=== PATIENT | female | born 1980 | race Caucasian/White ===

== ENCOUNTER 2025-01-25 15:38 | Emergency (ER) | payer MEDICAID, OTHER ==
[~2025-01-25] VITALS: Ht 175.3 cm; Wt 67.6 kg
[2025-01-25 16:06] VITALS: TEMP 97.9
[2025-01-25] MEDS ORDERED: LIDOCAINE 5% (PATCH) 1 EA PATCH TP ONE (17:01)
[2025-01-25] MEDS ORDERED: ACETAMINOPHEN 325 MG TABLET ONE (17:01)
[2025-01-25] MEDS ORDERED: KETOROLAC TROMETHAMINE 15 MG/ML VIAL ONE (17:01)
[2025-01-25] MEDS ORDERED: dexaMETHasone SOD PHOSPHATE 4 MG/ML VIAL ONE (17:01)
[2025-01-25] MEDS: KETOROLAC TROMETHAMINE 15 MG/ML VIAL IM ONE (17:10)
[2025-01-25] MEDS: dexaMETHasone SOD PHOSPHATE 4 MG/ML VIAL IM ONE (17:10)
[2025-01-25] MEDS: ACETAMINOPHEN 325 MG TABLET PO ONE (17:10)
[2025-01-25] MEDS: LIDOCAINE 5% (PATCH) 1 EA PATCH TP SCH (17:10)
[2025-01-25] MEDS ORDERED: GABA-536 PO (17:48)
[2025-01-25] MEDS ORDERED: LIDO30AD10 TP (17:48)
[2025-01-25 18:00] VITALS: BP 130/85; O2SAT 99
== END 2025-01-25 17:59 | disposition home or self-care (01) ==
LOC: ER 16:12
DX: M25.532 Pain in left wrist (principal); M25.531 Pain in right wrist; M25.512 Pain in left shoulder; M25.511 Pain in right shoulder; M25.572 Pain in left ankle and joints of left foot; M25.571 Pain in right ankle and joints of right foot; G89.29 Other chronic pain; M79.7 Fibromyalgia; Z88.0 Allergy status to penicillin; Z88.2 Allergy status to sulfonamides; Z87.39 Personal history of other diseases of the musculoskeletal system and connective tissue
CPT/HCPCS: 99284; 96372; J1885; J1100

== ENCOUNTER 2025-01-27 17:29 | Emergency (ER) | payer OTHER ==
[~2025-01-27] VITALS: Ht 175.3 cm; Wt 67.1 kg
[~2025-01-27 17:29] MED LIST: GABA-536 PO; LIDO30AD10 TP
[2025-01-27 17:46] VITALS: BP 151/101; TEMP 97.9; O2SAT 99
[2025-01-27] MEDS ORDERED: CYCLOBENZAPRINE 10 MG TABLET ONE (18:09)
[2025-01-27] MEDS ORDERED: KETOROLAC TROMETHAMINE 15 MG/ML VIAL ONE (18:09)
[2025-01-27] MEDS ORDERED: CYCL5TAB PO (18:14)
[2025-01-27] MEDS ORDERED: NAPR500T6 PO (18:14)
[2025-01-27] MEDS: CYCLOBENZAPRINE 10 MG TABLET PO ONE (18:16)
[2025-01-27] MEDS: KETOROLAC TROMETHAMINE 15 MG/ML VIAL IM ONE (18:18)
== END 2025-01-27 19:32 | disposition home or self-care (01) ==
LOC: ER 17:32
DX: M25.612 Stiffness of left shoulder, not elsewhere classified (principal); M25.611 Stiffness of right shoulder, not elsewhere classified; M25.652 Stiffness of left hip, not elsewhere classified; M25.651 Stiffness of right hip, not elsewhere classified; M25.632 Stiffness of left wrist, not elsewhere classified; M25.631 Stiffness of right wrist, not elsewhere classified; R53.1 Weakness; Z79.899 Other long term (current) drug therapy; Z88.0 Allergy status to penicillin; Z88.2 Allergy status to sulfonamides; Z87.39 Personal history of other diseases of the musculoskeletal system and connective tissue
CPT/HCPCS: J1885